=== PATIENT | female | born 1940 | race Caucasian/White ===

== ENCOUNTER 2016-12-07 12:35 | Emergency (ER) | payer OTHER ==
[~2016-12-07 12:35] MED LIST: ACIPHEX PO; ASMANEX 30110 MCG IN; BACTRIM DS1 TAB PO; BETAPACE80 PO; CALTRA600D PO; CALTRAT600 PO; CELEXA40 MG PO; CENTRUM PO; FLECAINIDE PO; FOLIC ACID400 MC1 PO; KLOR-CON M2020 MEQ PO; LAN125 PO; LEVOTHYROXIN100 MCG PO; LEXAPRO20 PO; LIPITOR10 PO; LOP100 PO; LOP25 PO; LOP50 PO; LORTAB 5 PO; MAGOX4 PO; MULTIPLE VIT PO; MULTIVITAMI1 PO; MVI PO; NAMENDA10 MG PO; NEXIUM40 PO; NORCO1 TA1 PO; OMNICEF300 PO; PLAVIX PO; PROAIR HFA INH; PROTONIX PO; PROZAC PO; RANITIDINE300 MG PO; SPIRO25 PO; SYMBICORT 160/41 INH INH; SYMBICORT 160/41 INH PO; SYMBICORT INH; SYN112 PO; SYN125 PO; SYN88 PO; SYNTHROID175 MCG PO; TAMBOCOR PO; VICODINTAB PO; VITAMIN D31000 UNIT PO
[2016-12-07 16:00] LABS: BASOPHILS 0.2 %; BASOPHILS ABSOLUTE 0.02 10/3/uL (0.0-0.16); EOSINOPHILS 0.5 %; EOSINOPHILS ABSOLUTE 0.05 10/3/uL (0.0-0.53); ER CBC TAT 0 Hrs 05 Mins; IMMATURE GRANULOCYTES 0.3 %; IMMATURE GRANULOCYTES ABSOLUTE 0.03 10/3/uL (0.0-0.11); LYMPHOCYTES 17.8 %; LYMPHOCYTES ABSOLUTE 1.85 10/3/uL (0.67-4.30); MEAN CORPUS HGB CONC 33.7 g/dL (32.0-36.0); MEAN CORPUSCULAR HEMOGLOB 30.9 pg (26.0-34.0); MEAN CORPUSCULAR VOLUME 91.8 fL (80-100); MEAN PLATELET VOLUME 9.8 fL (9.2-13.0); MONOCYTES 6.9 %; MONOCYTES ABSOLUTE 0.72 10/3/uL (0.21-1.20); NEUTROPHILS 74.3 %; NEUTROPHILS ABSOLUTE 7.72 10/3/uL (2.02-8.40); PLATELET COUNT 249 10/3/uL (150-400); RBC DISTRIBUTION WIDTH 14.3 % (12.0-16.0); WHITE BLOOD CELLS 10.4 10/3/uL (4.5-10.5)
[2016-12-07 16:01] LABS: HEMATOCRIT 47.2 % (36.0-48.0); HEMOGLOBIN 15.9 g/dL (12.0-16.0); MANUAL DIFF NO %; RED CELL COUNT 5.14 10/6/uL (4.0-5.6)
[2016-12-07 16:08] LABS: PARTIAL THROMBO TIME 31.1 SEC (22.5-37.2); PROTIME (NOT ORD) 13.5 SEC (12.0-14.5)
[2016-12-07 16:15] LABS: DIRECT BILIRUBIN 0.4 MG/DL (0.0-0.4); TOTAL PROTEIN 8.7 G/DL (6.0-8.5)
[2016-12-07 16:16] LABS: ALBUMIN 4.4 G/DL (3.5-5.0); INDIRECT BILIRUBIN(NOT ORDER) 1.3 MG/DL (0.1-0.9); TOTAL BILIRUBIN 1.7 MG/DL (0-1.2)
[2016-12-07 16:41] LABS: BUN (BLOOD UREA NITROGEN) 12 MG/DL (6-23); CALCIUM, SERUM 9.5 MG/DL (8.5-10.4); CHLORIDE, SERUM 100 MMOL/L (96-112); CO2 (CARBON DIOXIDE) 25 MMOL/L (24-34); CREATININE 1.11 MG/DL (0.55-1.02); GFR AFRICAN AMERICAN 55 ML/MIN (>=60); GFR NON AFRICAN AMERICAN 48 ML/MIN (>=60); GLUCOSE, SERUM 107 MG/DL (60-99); POTASSIUM, SERUM 4.1 MMOL/L (3.5-5.3); SODIUM, SERUM 135 MMOL/L (135-148); TROPONIN I <0.02 NG/ML (<0.05)
[2016-12-07 16:43] LABS: CHEST PAIN PROFILE TAT 0 Hrs 46 Mins
[2016-12-07 17:12] LABS: ASCORBIC ACID (UR NOT ORDER) NEG (NEG); BILIRUBIN, URINE NEGATIVE (NEG); ER URINALYSIS TAT 0 Hrs 12 Mins; KETONE, URINE NEGATIVE (NEG); LEUKOCYTE ESTERASE(NOT OR TRACE (NEG); NITRITE (URINE) NEG (NEG); WBC (NOT ORDERED) (RFLEX) 9 (0-5)
== END 2016-12-07 17:40 | disposition home or self-care (01) ==
LOC: ER 12:35
PROVIDERS: Emergency Medicine; Nurse Practitioner Family
DX: E83.41 Hypermagnesemia (principal); I11.0 Hypertensive heart disease with heart failure; I50.9 Heart failure, unspecified; I25.10 Atherosclerotic heart disease of native coronary artery without angina pectoris; I48.91 Unspecified atrial fibrillation; F03.90 Unspecified dementia, unspecified severity, without behavioral disturbance, psychotic disturbance, mood disturbance, and anxiety; K21.9 Gastro-esophageal reflux disease without esophagitis; F32.9 Major depressive disorder, single episode, unspecified; F41.9 Anxiety disorder, unspecified; M06.9 Rheumatoid arthritis, unspecified; Z86.73 Personal history of transient ischemic attack (TIA), and cerebral infarction without residual deficits; Z87.01 Personal history of pneumonia (recurrent); Z87.440 Personal history of urinary (tract) infections; Z87.442 Personal history of urinary calculi; Z90.710 Acquired absence of both cervix and uterus; Z95.0 Presence of cardiac pacemaker; Z88.6 Allergy status to analgesic agent; Z88.8 Allergy status to other drugs, medicaments and biological substances; Z79.899 Other long term (current) drug therapy
CPT/HCPCS: 70450; 71020; 74176; 80048; 80076; 81001; 83735; 84484; 85025; 85610; 85730; 93005; 96374; 99285; J2405